=== PATIENT | female | born 1965 | race Caucasian/White ===

== ENCOUNTER 2018-07-14 14:01 | Outpatient (CLI) | payer OTHER ==
--- NOTE | 2018-07-14 15:37 | CT ---
LEFT LOWER EXTREMITY CT SCAN WITH IV CONTRAST: 07/14/18 HISTORY: 53-year-old female presents with fracture of lateral malleolus, prior fracture in March with continu ed pain and swelling. Metal plate and screws stabilize the distal fibula and associated slightly comminuted spiral or obliq ue type fracture. There are several anterior osteophytes off the distal anterior tibia which could po ssible result in some anterior impingement. There are multiple small irregular bone densities noted p osterior to the distal tibia as well as anterior and posterolateral to the talofibular joint. Some of these are osteophytes but some of these could certainly represent intra-articular bodies. Small area s of ossification noted between the medial malleolus and the medial talus which could also represent some small osteophytes and/or bodies. No evidence for new acute fracture. No talar dome osteochondral lesion. Some minimal persistent widening of the distal tibiofibular space with presumed associated s yndesmotic injury. IMPRESSION: Metal plate and screws stabilizing a possibly very slightly comminuted mostly vertically oriented obl ique fracture of the distal fibula which is incompletely healed. Multiple anterior and posterior tibi al osteophytes with some small irregular bodies anteriorly, posteriorly and medially and laterally wh ich could represent osteophytes but certainly could represent some intra-articular bodies. Some minim al abnormal widening of the distal tibiofibular joint space, evidence for syndesmotic ligament injury . Prominent plantar and Achilles enthesophytes. No evidence for new fracture. POS: [facility]
--- NOTE | 2018-07-14 15:39 | RAD ---
LEFT ANKLE 2 VIEWS: AP and lateral views of left ankle. HISTORY: A 52-year-old female with a history of fracture, followup. COMPARISON: 04/05/2018 study. FINDINGS: Metal plate and screws stabilize the distal fibula. There is some abnormal widening of the distal ti biofibular joint. The tibiotalar joint appears intact. Possible small intraarticular body noted bet ween the lateral talus and the lateral fibula and possible chip-type avulsion fracture off the medial talus in association with deltoid ligament injury. The ankle mortise appears to be intact at this t gurwinder. IMPRESSION: Lateral metal plate and screws stabilizing the distal fibula with some widening of the distal tibiofi bular space and possible small intraarticular body between the lateral talus and lateral malleolus. Prominent generalized soft tissue swelling. POS: [facility]
== END 2018-07-14 14:02 | disposition home or self-care (01) ==
LOC: BICCT 14:01
PROVIDERS: ATTEND Physician Assistant Surgical
DX: S82.62XD Displaced fracture of lateral malleolus of left fibula, subsequent encounter for closed fracture with routine healing (principal); M25.762 Osteophyte, left knee; M25.872 Other specified joint disorders, left ankle and foot; M79.89 Other specified soft tissue disorders

== ENCOUNTER 2018-07-29 05:38 | Day surgery (SDC) | payer OTHER ==
[2018-07-28 12:10] VITALS: BMI 33.3
[2018-07-29] MEDS ORDERED: Midazolam HCl 2 mg/2 ml Vial ONE ×2 (06:08→07:31)
[2018-07-29] MEDS ORDERED: Fentanyl 100 MCG/2 ML VIAL ONE ×6 (06:09→09:18)
[2018-07-29] MEDS ORDERED: Lidocaine 1% (PF) 30 ML VIAL ONE (06:47)
[2018-07-29] MEDS ORDERED: CEFAZOLIN 2 GM/50 ML BAG ONE (06:55)
[2018-07-29] MEDS ORDERED: Bupivacaine HCl 0.5%/Epinephrine 1:200,000/PF 30 ml Vial ONE ×2 (08:05→22:03)
[2018-07-29] MEDS ORDERED: hydrALAZINE 20 MG/ML VIAL ONE (08:23)
[2018-07-29] MEDS ORDERED: HYDROcodone/Acetaminophen 5/325 mg Tablet PO PRN ×2 (09:26)
[2018-07-29] MEDS ORDERED: Ropivacaine 0.2% 550 ML 550 ML NERVE BLCK SCH (09:26)
[2018-07-29] MEDS ORDERED: Promethazine HCl 25 MG/ML VIAL IM PRN (09:26)
[2018-07-29] MEDS ORDERED: traMADol HCl 50 MG TAB PO PRN ×2 (09:26)
[2018-07-29] MEDS ORDERED: Zolpidem Tartrate 5 MG TAB PO PRN (09:26)
[2018-07-29] MEDS ORDERED: Ondansetron PF 4 MG/2 ML Vial IVP PRN (09:26)
--- NOTE | 2018-07-29 10:22 | OP ---
DATE OF PROCEDURE: 07/29/2018 PROCEDURE PERFORMED: Open reduction and internal fixation of left ankle syndesmosis. PREOPERATIVE DIAGNOSIS: Left ankle fracture, status post fibular fixation with widening of syndesmosis. POSTOPERATIVE DIAGNOSIS: Left ankle fracture, status post fibular fixation with widening of syndesmosis. COMPLICATIONS: None. ESTIMATED BLOOD LOSS: Minimal. ANESTHESIA: General plus local. IMPLANTS: Synthes 4.0, cortical screws x2. INDICATIONS: Ms. Scott is a 53-year-old female, who fractured her ankle. She was treated with fibular plate. Initial stress view was negative. However, as she has begun weightbearing, she has had widening of her syndesmosis with ongoing pain. She has been indicated for syndesmosis reduction and fixation to hopefully further stabilize her ankle and promote improved healing. Risks have been reviewed in detail. She has elected to proceed. DESCRIPTION OF PROCEDURE: Ms. Scott was identified in the preoperative holding area. The correct extremity was marked. She was carried to the operating room. She was positioned supine. General anesthesia was induced. A multidisciplinary time-out was performed. The left lower extremity was prepped and draped in sterile fashion. We began the procedure with lateral approach to the fibula. We dissected down through the subcutaneous tissues. The fascia was opened. We exposed the underlying fibular plate. Two screws were removed from the plate. At this point, we worked anteriorly over the fibula. We cleaned out the syndesmosis with a rongeur. We then used an osteotome to roughen the syndesmosis bony cortices. At this point, we applied a clamp across the syndesmosis. We evaluated the position with intraoperative x-ray. We were able to reduce the syndesmosis. We took a contralateral x-ray comparing the two sides and matched the fibular overlap. At this point, we placed two 4.0 screws across the syndesmosis through the fibular plate. This allowed rigid fixation. At this point, we took final images including a stress view, which was negative. We irrigated and closed in layers. Local anesthetic was placed. The patient was taken to the recovery room in good condition without complication. Job ID: [id number]
--- NOTE | 2018-07-29 13:59 | RAD ---
LEFT ANKLE 3 VIEWS: HISTORY: Left ankle fracture. FINDINGS/IMPRESSION: There are postop changes with plate and screws in the distal fibula and 2 screws through the distal f ibula and tibia. POS: [facility]
[2018-07-29] MEDS ORDERED: PROPOFOL 200 MG/20 ML VIAL ONE (21:15)
[2018-07-29] MEDS ORDERED: Dexamethasone 20 MG/5 ML VIAL ONE (21:15)
[2018-07-29] MEDS ORDERED: Ondansetron PF 4 MG/2 ML Vial ONE (21:15)
[2018-07-29] MEDS ORDERED: Ketorolac Tromethamine 30 MG/ML VIAL ONE (21:15)
[2018-07-29] MEDS ORDERED: Bupivacaine 0.25% HCL 30 ML VIAL ONE (22:03)
== END 2018-07-29 11:35 | disposition home or self-care (01) ==
LOC: SDC 05:38
PROVIDERS: ATTEND Orthopaedic Surgery
PROC: 0SSG04Z Reposition Left Ankle Joint with Internal Fixation Device, Open Approach (ICD-10-PCS; principal; 2018-07-29)
DX: S93.432A Sprain of tibiofibular ligament of left ankle, initial encounter (principal); I10 Essential (primary) hypertension; F17.200 Nicotine dependence, unspecified, uncomplicated; Z79.2 Long term (current) use of antibiotics; Z79.899 Other long term (current) drug therapy; Z98.890 Other specified postprocedural states; W01.0XXA Fall on same level from slipping, tripping and stumbling without subsequent striking against object, initial encounter
CPT/HCPCS: 76001; 96374; A4306; C1713; J0360; J0670; J1100; J1885; J2001; J2250; J2405; J2704; J2795; J3010; S0020

== ENCOUNTER 2018-12-28 10:50 | Day surgery (SDC) | payer OTHER ==
[2018-12-27 14:26] VITALS: BMI 33.3
[2018-12-28] MEDS ORDERED: Midazolam HCl 2 mg/2 ml Vial ONE (13:13)
[2018-12-28] MEDS ORDERED: Ondansetron PF 4 MG/2 ML Vial ONE (13:30)
[2018-12-28] MEDS ORDERED: Lidocaine 1% PF 5 ML VIAL ONE (13:30)
[2018-12-28] MEDS ORDERED: Dexamethasone 20 MG/5 ML VIAL ONE (13:30)
[2018-12-28] MEDS ORDERED: PROPOFOL 200 MG/20 ML VIAL ONE (13:30)
[2018-12-28] MEDS ORDERED: Ketorolac Tromethamine 30 MG/ML VIAL ONE (13:30)
[2018-12-28] MEDS ORDERED: Fentanyl 100 MCG/2 ML VIAL ONE ×3 (13:59→15:03)
--- NOTE | 2018-12-28 14:27 | RAD ---
EXAM: 3 views of the left ankle HISTORY: Left ankle pain status post ORIF for fracture COMPARISON: 07/29/2018 FINDINGS: 3 limited intraoperative fluoroscopic views of the left ankle shows no evidence of acute fr acture or dislocation. There are screws and a distal fibular plate. 2 syndesmotic screws are seen which were removed on the latter radiographs. The distal most screw fractured with the screw still be ing in the distal tibia. No soft tissue swelling is seen. No degenerative changes are present. IMPRESSION: Removal of syndesmotic screws
[2018-12-28] MEDS ORDERED: Meperidine HCl/PF 25 MG/ML VIAL ONE (14:51)
--- NOTE | 2018-12-28 21:17 | OP ---
DATE OF PROCEDURE: 12/28/2018 PROCEDURE PERFORMED: Left ankle hardware removal. PREOPERATIVE DIAGNOSES: History of left ankle fracture with syndesmosis screw fixation. POSTOPERATIVE DIAGNOSES: History of left ankle fracture with syndesmosis screw fixation. COMPLICATIONS: None. ESTIMATED BLOOD LOSS: Minimal. ANESTHESIA: General. INDICATIONS: Ms. Scott is a 53-year-old female who fractured her ankle. She was treated with syndesmosis screw fixation. She has now healed and has been indicated for screw removal. Goal is to improve motion and prevent complications such as hardware breakage. Risks have been reviewed in detail. She has elected to proceed with the operation. DESCRIPTION OF PROCEDURE: Ms. Scott was identified in the preoperative holding area. Her correct extremity was marked. The left lower extremity was prepped and draped in sterile fashion. We began the procedure with a small incision directly over the patient's syndesmosis screws. We used intraoperative x-ray to guide this. We dissected down through the subcutaneous tissues to the fascia level. The fascia was incised. We exposed the screw heads. These were then removed sequentially using an appropriate screwdriver. Once screws were removed, we performed a stress view x-ray, which was negative for any syndesmosis widening. The more inferior screw was broken. The last 2 cm was left within the bone. It was not able to be removed. We thoroughly irrigated. We then closed with 2-0 Vicryl suture followed by 3-0 nylon suture. Sterile dressing was applied. The patient was taken to the recovery room in good condition without complication at this point. Job ID: [id number]
== END 2018-12-28 16:30 | disposition home or self-care (01) ==
LOC: SDC 10:50
PROVIDERS: ATTEND Orthopaedic Surgery
PROC: 0SPG04Z Removal of Internal Fixation Device from Left Ankle Joint, Open Approach (ICD-10-PCS; principal; 2018-12-28)
DX: T84.84XA Pain due to internal orthopedic prosthetic devices, implants and grafts, initial encounter (principal); F17.200 Nicotine dependence, unspecified, uncomplicated; I10 Essential (primary) hypertension; Z79.899 Other long term (current) drug therapy
CPT/HCPCS: 76000; 93005; 93010; J0690; J1100; J1885; J2001; J2175; J2250; J2405; J2704; J3010

== ENCOUNTER 2022-09-29 10:01 | Outpatient (CLI) | payer BC | END 2022-09-29 10:02 | disposition home or self-care (01) | LOC: TBSIIMAG 10:01 | PROVIDERS: ATTEND Neurological Surgery | DX: M48.062 Spinal stenosis, lumbar region with neurogenic claudication (principal); K60.2 Anal fissure, unspecified; M51.36 Other intervertebral disc degeneration, lumbar region; M48.061 Spinal stenosis, lumbar region without neurogenic claudication; M47.816 Spondylosis without myelopathy or radiculopathy, lumbar region; M51.27 Other intervertebral disc displacement, lumbosacral region; M25.78 Osteophyte, vertebrae; M47.817 Spondylosis without myelopathy or radiculopathy, lumbosacral region | CPT/HCPCS: 72148 ==